=== PATIENT | female | born 1970 | race Caucasian/White ===

== ENCOUNTER 2018-08-19 08:39 | Observation (INO) ==
[2018-08-19 08:48] VITALS: BP 173/99
[2018-08-19 09:10] LABS: BASO# 0.01 X1000 (0.0-0.2); BASO% 0.2 % (0.0-0.8); EOS# 0.03 X1000 (0.0-0.7); EOS% 0.5 % (0.0-10.0); HEMATOCRIT 44.9 % (37.0-47.0); HEMOGLOBIN 15.8 g/dL (12.0-16.0); LYMPH# 1.71 X1000 (1.2-3.4); LYMPH% 27.2 % (20.5-51.1); MCH 31.9 PG (27-31); MCHC 35.2 g/dL (33-37); MCV 90.5 FL (81-99); MONO# 0.21 X1000 (0.11-0.59); MONO% 3.3 % (1.7-9.3); MPV 8.7 FL (7.4-10.4); NEUT# 4.32 X1000 (1.4-6.5); NEUT% 68.8 % (42.2-75.2); PLT 204 X1000 (130-400); RBC 4.96 XMIL (4.2-5.4); RDW 12.6 % (11.5-14.5); WBC 6.28 X1000 (4.8-10.8)
--- NOTE | 2018-08-19 09:16 | EKG Report ---
Test Performed on : 08/19/2018 08:52:00 AM Test Reason : high b/p Blood Pressure : / mmHG Vent. Rate : 078 BPM Atrial Rate : 078 BPM P-R Int : 112 ms QRS Dur : 082 ms QT Int : 368 ms P-R-T Axes : 008 047 053 degrees QTc Int : 419 ms Normal sinus rhythm. Normal ECG No previous ECGs available Unconfirmed Result
--- NOTE | 2018-08-19 09:17 | Diag Imaging Result Doc PS360 ---
EXAM: CHEST-2 VIEWS 08/19/2018 HISTORY: high b/p, chest pain TECHNIQUE: PA and lateral chest COMMENT: There is no evidence of acute cardiac or pulmonary disease. No previous studies are available for comparison. IMPRESSION: No evidence of acute disease. Electronically signed by Humberto Mandel 08/19/2018 9:15 AM
[2018-08-19 09:19] LABS: INR 0.88; PROTIME 12.7 Seconds (11.0-16.0)
[2018-08-19 09:20] LABS: PTT 26.3 Seconds (22.3-41.8)
[2018-08-19 09:33] LABS: AGAP 11; ALB/GLOB RATIO 1.7; ALBUMIN 4.8 g/dL (3.5-5.0); ALKALINE PHOSPHATASE 57 U/L (32-104); BUN 9 mg/dL (8-22); CALCIUM 9.7 mg/dL (8.8-10.2); CHLORIDE 100 mmol/L (98-107); CK PROFILE 93 U/L (24-173); COSMO 276; CREATININE 0.8 mg/dL (0.5-0.9); ESTIMATED GFR > 60; GLUCOSE 156 mg/dL (70-104); GOT 22 U/L (10-30); GPT 31 U/L (10-36); POTASSIUM 3.7 mmol/L (3.5-5.1); SODIUM 137 mmol/L (136-145); TCO2 26 mmol/L (25-35); TOTAL BILIRUBIN 0.44 mg/dL (0.20-1.00); TOTAL PROTEIN 7.6 g/dL (6.3-8.3)
--- NOTE | 2018-08-19 10:57 | PROVIDER DOCUMENTATION ---
HPI-Chest Pain - General Chief Complaint: B/P Problems Stated Complaint: 169/105 HBP, LIPS TINGLING, NUMBNESS, PAIN IN CHES Time Seen by Provider: 08/19/18 10:53 Source: patient - History of Present Illness-CP Nature of Presenting Problem: Patient is a 48 yowf who presents from work following an episode of left-sided chest pain radiating to left side of neck, diaphoresis, nausea, and lip "tingling" which occurred at 0830. She also had dizziness and mild SOB with the episode. S/s have improved now, although she still reports some intermittent chest pain. 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 Denies unilateral leg pain/swelling, heart palpitations, recent surgery, cough, fever, or any other symptoms. She is non-toxic in appearance. Review of Systems - Adult - REVIEW OF SYSTEMS - ADULT Constitutional: reports: no symptoms reported. denies: chills, fever Eyes: reports: no symptoms reported Ears, Nose, Mouth & Throat: reports: no symptoms reported Cardiovascular: reports: see HPI, chest pain. denies: edema, heart murmur, irregular heart rate, orthopnea, palpitations, poor circulation, PND, syncope Respiratory: reports: see HPI, shortness of breath. denies: chronic cough, cough, dyspnea on exertion, excessive sputum production, hemoptysis, pleurisy, wheezing Gastrointestinal: reports: no symptoms reported Genitourinary: reports: no symptoms reported Musculoskeletal: reports: no symptoms reported Integumentary: reports: no symptoms reported Neurological: reports: no symptoms reported Psychiatric: reports: no symptoms reported Endocrine: reports: no symptoms reported Hematologic/Lymphatic: reports: no symptoms reported Allergic/Immunologic: reports: no symptoms reported All Other Systems: Reviewed and Negative Past History - Adult - PAST MEDICAL HISTORY-ADULT Review of Records: reports: Old Records Reviewed, Nursing Assessment Review, Medications Reviewed, Social history reviewed & non-contributory. Major Childhood Illnesses: reports: denies history Cardiovascular: reports: HTN, hyperlipidemia Respiratory: reports: denies history Gastrointestinal: reports: denies history Obstetrical/Gynecological: reports: denies history Genitourinary: reports: denies history Musculoskeletal: reports: denies history Neurological: reports: denies history Psychiatric: reports: anxiety Endocrine/Immune: reports: denies history Other Conditions: reports: denies history - PRIOR SURGERIES/PROCEDURES Surgical/Procedure History: reports: hysterectomy - FAMILY HISTORY Family History: CAD over 55 yo (Grandmother), HTN (Mother) - SOCIAL HISTORY Smoking: cigarettes, greater than 1 pack/day Physical Exam-General - PHYSICAL EXAM-ADULT Initial Vital Signs Reviewed: Yes - CONSTITUTIONAL General Appearance: alert, no apparent distress. negative: lethargic, slow to respond - EYES Eyes: pink conjunctivae - HEAD, EARS, NOSE, MOUTH & THROAT HENMT: normocephalic/atraumatic, moist mucous membranes - NECK Neck: non-tender, full range of motion, supple, normal inspection - RESPIRATORY Respiratory: chest non-tender, lungs clear, normal breath sounds, no pleuratic chest pain, no respiratory distress, no accessory muscle use - CARDIOVASCULAR Cardiovascular: normal peripheral pulses, regular rate, rhythm, no edema, no gallop, no JVD, no murmur - GASTROINTESTINAL (ABDOMEN) Abdominal Exam: normal bowel sounds, non tender, soft, no organomegaly, no pulsatile mass. negative: distended, guarding, rigid, rebound, tenderness, h ernia, mass, hepatomegaly, splenomegaly - MUSCULOSKELETAL Back Exam: normal inspection Extremity: normal range of motion, non-tender, normal gait, normal inspection Peripheral Pulses: radial (R): 3+, radial (L): 3+ - SKIN Integumentary: normal color, warm/dry. negative: cyanosis, diaphoresis, jaundice, mottled, pallor - NEUROLOGIC Neurologic: grossly normal, no motor/sensory deficits - PSYCHIATRIC Psych/Mental Status: normal mood/affect, normal thought content, normal thought process, oriented x 3 - HEART Score HEART Score: History: Moderately Suspicious HEART Score: ECG: Normal HEART Score: Age: 45-65 Years HEART Score: Risk Factors for Atherosclerotic Disease: > or = 3 Risk Factors or History of Atherosclerotic Disease HEART Score: Troponin: < or = Normal Limit Total HEART Score:: 4 Progress - PLAN OF CARE/RESULTS Progress/Plan/Lab Results: Vital Signs - 8 hr 08/19/18 08:44 Temperature 97.8 F Pulse Rate 93 H Respiratory Rate 20 Blood Pressure 173/99 O2 Sat by Pulse Oximetry 100 Laboratory Results - last 24 hr 08/19/18 08/19/18 08/19/18 08:50 08:50 08:50 WBC 6.28 RBC 4.96 Hgb 15.8 Hct 44.9 MCV 90.5 MCH 31.9 H MCHC 35.2 RDW Std Deviation 12.6 Plt Count 204 MPV 8.7 Immature Gran % (Auto) 0.0 Neut % (Auto) 68.8 Lymph % (Auto) 27.2 [place] % (Auto) 3.3 Eos % (Auto) 0.5 Baso % (Auto) 0.2 Immature Gran # (Auto) 0.00 Neut # (Auto) 4.32 Lymph # (Auto) 1.71 [place] # (Auto) 0.21 Eos # (Auto) 0.03 Baso # (Auto) 0.01 PT INR PTT (Actin FS) Sodium 137 Potassium 3.7 Chloride 100 Carbon Dioxide 26 Anion Gap 11 BUN 9 Creatinine 0.8 Estimated GFR/1.73 m2 > 60 BUN/Creatinine Ratio 11 Glucose 156 H Calculated Osmolality 276 Calcium 9.7 Total Bilirubin 0.44 AST 22 ALT 31 Alkaline Phosphatase 57 Creatine Kinase 93 Troponin T Jpi-S-Ywahdkhaibz Pept 48 Total Protein 7.6 Albumin 4.8 Globulin 2.8 Albumin/Globulin Ratio 1.7 08/19/18 08/19/18 08:50 08:50 WBC RBC Hgb Hct MCV MCH MCHC RDW Std Deviation Plt Count MPV Immature Gran % (Auto) Neut % (Auto) Lymph % (Auto) [place] % (Auto) Eos % (Auto) Baso % (Auto) Immature Gran # (Auto) Neut # (Auto) Lymph # (Auto) [place] # (Auto) Eos # (Auto) Baso # (Auto) PT 12.7 INR 0.88 PTT (Actin FS) 26.3 Sodium Potassium Chloride Carbon Dioxide Anion Gap BUN Creatinine Estimated GFR/1.73 m2 BUN/Creatinine Ratio Glucose Calculated Osmolality Calcium Total Bilirubin AST ALT Alkaline Phosphatase Creatine Kinase Troponin T < 0.010 Rax-G-Jjryvschnzj Pept Total Protein Albumin Globulin Albumin/Globulin Ratio Orders Category Date Time Status Cardiac Monitoring DIRECTED Care 08/19/18 11:27 Active Repeat Vital Signs .Blood Pressure Care 08/19/18 11:27 Active Saline Loc NOW Care 08/19/18 11:27 Active CHEST-2 VIEWS [RAD] Stat Exams 08/19/18 08:49 Completed CBC WITH ELECTRONIC DIFF [HEME] Stat Lab 08/19/18 08:50 Completed CK PROFILE [SP CHEM] Stat Lab 08/19/18 08:50 Completed COMPREHENSIVE METABOLIC PANEL [CHEM] Stat Lab 08/19/18 08:50 Completed PRO B-NATRIURETIC PEPTIDE Stat Lab 08/19/18 08:50 Completed PROTIME WITH INR [COAG] Stat Lab 08/19/18 08:50 Completed PTT [COAG] Stat Lab 08/19/18 08:50 Completed TROPONIN T Stat Lab 08/19/18 08:50 Completed CP/SOB/Palp >45 yrs of Age Stat Oth 08/19/18 08:49 Ordered EKG [EKG] Stat Ther 08/19/18 08:49 Draft EKG [EKG] Stat Ther 08/19/18 11:36 Ordered Transfer/Admit Order [TRANSFER] Routine Transfer 08/19/18 11:38 Ordered 1128-Admitting HPS paged. Pt in agreement with admission plan. Result Diagrams: 08/19/18 08:50 08/19/18 08:50 - EKG 1 Time of EKG reading by physician:: 10:04 (syed schwartz) EKG Read and Signed by:: Estevan Schwartz EKG Interpretation (*Must complete 3 of following elements*): Normal Rate: 78 Rhythm: SR QRS: normal ST Wave: normal - XRAY 1 XRAY Study: Chest (IMPRESSION: No evidence of acute disease. Electronically signed by Humberto Mandel 08/19/2018 9:15 AM) - CONSULTS/PCP/HOSPITALIST Notification #1 *Consult/PCP/Hospitalist*: BHUMI Wilhelm MATERIAL CONTROL SUPERVISOR Time Discussed: 11:34 Reason/Comments: chest pain admission Consult Disposition: Admit (MATERIAL CONTROL SUPERVISOR asked that I order repeat EKG and she will enter remaining orders.) Departure - Departure Date of Disposition Decision: 08/19/18 Time of Disposition Decision: 11:35 DIAGNOSIS: Chest pain Qualifiers: Chest pain type: unspecified Qualified Code(s): R07.9 - Chest pain, unspecified Disposition: ADMITTED INPATIENT 09 Certified Medical Emergency: Emergent Condition: Stable Referrals and Follow-Ups: Meliton Mary MD [Primary Care Provider] - - Critical Care Note This patient required my direct & personal management of CC.: No Attestation - Physician/ MARGUERITE Attestation Patient care was provided by Advanced Practice Provider:: Yes Advanced Practice Provider:: Prashant Salguero Advanced Practice Provider documentation review:: The Mid-level provider documentation, treatment plan and medical decision making was reviewed by the physician who agrees with all treatment and medical decision making by the MLP. The physician spent face to face time with patient:: No Advanced Practice Provider documentation review:: Supervising physician onsite and consulted in the evaluation and care of this patient. The physician did not have a face to face encounter with the patient.
--- NOTE | 2018-08-19 13:38 | HISTORY AND PHYSICAL ---
PRIMARY CARE PHYSICIAN: Dr. Meliton Mary. CHIEF COMPLAINT: Left-sided chest pain radiating to the left side of her neck with associated diaphoresis, nausea, lip tingling, dizziness and mild shortness of breath that began this morning around 0830 hours while she was at work. HISTORY OF PRESENTING ILLNESS: This is a 48-year-old female, who presents to [facility] after she was at work around 0830 hours this morning and began having left-sided chest pain that radiated to the left side of her neck. Started having diaphoresis, nausea, dizziness, some mild shortness of breath and tingling in her lip. Her heart score was a 4. Her first set of cardiac enzymes were negative. Her EKG showed normal sinus rhythm at 78, but she will be admitted for further evaluation and treatment. PAST MEDICAL HISTORY: Hypertension, hyperlipidemia. PAST SURGICAL HISTORY: Hysterectomy. FAMILY HISTORY: Her grandmother had coronary artery disease. Mom has hypertension. SOCIAL HISTORY: She currently lives with family. Smokes 1 pack a day of cigarettes and has done so for the past 30 years. Denied any alcohol or illicit drug use. ALLERGIES: Allergies are not recorded. HOME MEDICATIONS: A current list will need to be obtained, reviewed and restarted as appropriate. We will place an order for nursing to update and confirm home medications. LABORATORY DATA: Showed a white blood cell count of 6.28, hemoglobin 15.8, hematocrit 44.9, platelets 204. PT and INR of 12.7 and 0.88. Sodium of 137, potassium 3.7, chloride 100, CO2 26. BUN of 9, creatinine 0.8, glucose 156. Creatine kinase of 93, troponin less than 0.010. ProBNP of 48. X-RAY DATA: Chest x-ray showed no evidence of acute disease. EKG showed normal sinus rhythm at 78. REVIEW OF SYSTEMS: She denied any fever, chills, blurred vision. She did have dizziness and diaphoresis, lip tingling, left-sided chest pain that radiated to the left side of her neck, nausea, shortness of breath. Denied any abdominal pain, constipation, diarrhea, burning or hurting with urination. PHYSICAL EXAMINATION: VITAL SIGNS: On arrival, she had a temperature of 97.8 degrees, pulse 93, respirations 20, blood pressure 173/99, satting 100% on room air. GENERAL: This is a 48-year-old female, who is sitting up, answers questions appropriately. HENT: Normocephalic, atraumatic. Normal ENT inspection. Oropharynx and nares are clear. EYES: Pupils are equal, round, reactive to light and accommodation. Extraocular movements are intact. NECK: Normal inspection, normal range of motion. LUNGS: Clear to auscultation bilaterally with equal lung expansion and chest wall movement. HEART: With regular rate and rhythm. No murmurs, rubs, or gallops. ABDOMEN: Soft, nontender, nondistended. Bowel sounds are present x4 quadrants. MUSCULOSKELETAL: She has 5/5 strength x4 extremities. NEUROLOGICAL: The cranial nerves 2-12 appear grossly intact. ASSESSMENT: 1. Chest pain. 2. Hypertension. 3. Hyperlipidemia. 4. Tobacco abuse. PLAN: She is being admitted to the medical unit. Placed on telemetry O2 per protocol. We will consult Cardiology. Do serial cardiac enzymes. Place on nitroglycerin 0.4 mg sublingually p.r.n. and placed on a nicotine patch 21 mg transdermally daily. Check a lipid profile. Recheck a CBC, BMP in the a.m. Again, we will have nursing to update and confirm her home medications, and will review and restart as appropriate. Dictated by ISIAH Rao for Chu Jimenez MD cc: ISIAH Rao MD Gregory S. Cheatham, MD
== END 2018-08-19 15:00 | disposition left against medical advice (07) ==
LOC: EDIPHOLD 08:39 → ED 08:39 → EDIPHOLD 15:00
PROVIDERS: ADMIT Internal Medicine
CPT/HCPCS: 71020; 71046; 80053; 82550; 83880; 84484; 85025; 85610; 85730; 93005; 99285